=== PATIENT | male | born 1945 | race Hispanic/Latino ===

== ENCOUNTER 2024-12-10 14:07 | Emergency (ER) | payer BC, MEDICARE ==
[~2024-12-10] VITALS: Ht 167.6 cm; Wt 90.7 kg
[2024-12-10 14:09] VITALS: PULSE 78; RESP 17; TEMP 97.8; O2SAT 99
[2024-12-10] MEDS: CEFTRIAXONE 1 GM VIAL IM ONE (15:54)
[2024-12-10] MEDS: TETANUS/DIPHTHERIA TOX ADULT 0.5 ML SYR IM ONE (15:55)
[2024-12-10] MEDS: LIDOCAINE 1% W/EPINEPHRINE 20 ML VIAL INJ ONE (16:38)
[2024-12-10] MEDS ORDERED: ULTRAM 50MG50 MG PO (17:59)
[2024-12-10] MEDS ORDERED: CEPHALEXIN500 MG PO (17:59)
== END 2024-12-10 18:32 | disposition home or self-care (01) ==
LOC: ER 14:32
DX: S62.347B Nondisplaced fracture of base of fifth metacarpal bone, left hand, initial encounter for open fracture (principal); W01.0XXA Fall on same level from slipping, tripping and stumbling without subsequent striking against object, initial encounter; Y93.01 Activity, walking, marching and hiking; Y92.481 Parking lot as the place of occurrence of the external cause; I10 Essential (primary) hypertension; J45.909 Unspecified asthma, uncomplicated; M10.9 Gout, unspecified; F41.9 Anxiety disorder, unspecified; F32.A Depression, unspecified
CPT/HCPCS: 70450; 71046; 73110; 73120; 90471; 90714; 99284; J0696